=== PATIENT | male | born 1995 | race Hispanic/Latino ===

== ENCOUNTER 2020-11-17 04:04 | Emergency (ER) | payer SELFPAY ==
[2020-11-17] MEDS ORDERED: Mag-Al Plus 1200 MG/1200 MG/120 MG/30 ML UDCUP ONE ×2 (04:24→05:59)
[2020-11-17] MEDS ORDERED: Lidocaine Viscous Sol 2% 15 ml UD Cup ONE ×2 (04:24→05:59)
[2020-11-17 04:41] LABS: #Basophils 0.1 thou/uL (0.0-0.2); #Eosinphils 0.4 thou/uL (0.0-0.7); #Lymphocytes 2.4 thou/uL (1.20-3.40); #Monocytes 0.8 thou/uL (0.11-0.59); #Neutrophils 6.8 thou/uL (1.40-6.50); %Basophils 0.8 % (0.0-1.0); %Eosinophils 3.6 % (0.0-10.0); %Lymphocytes 23.2 % (21.0-51.0); %Monocytes 7.5 % (0.0-10.0); %Neutrophils 64.9 % (42.0-75.0); Hemoglobin 14.7 g/dL (14.0-18.0); Mean Corpuscular HGB CONC 32.7 g/dL (32.0-36.0); Mean Corpuscular Hemoglobin 27.6 pg (27.0-31.0); Mean Corpuscular Volume 84.5 fL (78.0-98.0); Mean Platelet Volume 9.8 fL (7.4-10.4); Platelet Count 230 thou/uL (130-400); RBC Distribution Width 12.1 % (11.5-14.5); Red Blood Cell (RBC) Count 5.33 mill/uL (4.70-6.10); White Blood Cell (WBC) Count 10.5 thou/uL (4.8-10.8)
[2020-11-17 05:08] LABS: ALT (SGPT) 59 U/L (8-55); AST (SGOT) 23 U/L (5-34); Albumin 4.2 g/dL (3.5-5.0); Alkaline Phosphatase 76 U/L (40-110); Anion Gap 13 mmol/L (10-20); BUN (Urea Nitrogen) 13 mg/dL (8.9-20.6); Bilirubin, Total 0.3 mg/dL (0.2-1.2); Calc. Creatinine Clearance 0 mL/min (70-130); Calcium 9.3 mg/dL (7.8-10.44); Carbon Dioxide 26 mmol/L (22-29); Chloride 106 mmol/L (98-107); Globulin 3.2 g/dL (2.4-3.5); Glucose 129 mg/dL (70-105); Lipase 13 U/L (8-78); Potassium 4.8 mmol/L (3.5-5.1); Protein, Total 7.4 g/dL (6.0-8.3); Sodium 140 mmol/L (136-145)
[2020-11-17] MEDS ORDERED: Morphine 4 MG/ML VIAL ONE (05:40)
[2020-11-17] MEDS ORDERED: Morphine 2 MG/ML VIAL ONE (05:40)
[2020-11-17] MEDS ORDERED: Sucralfate 1 GM TAB ONE (05:59)
[2020-11-17] MEDS ORDERED: Dicyclomine 10 MG CAP ONE ×2 (05:59→06:00)
== END 2020-11-17 06:14 | disposition home or self-care (01) ==
LOC: MADERS 04:04
DX: K29.70 Gastritis, unspecified, without bleeding (principal)
CPT/HCPCS: 36415; 80053; 83690; 85025; 96372; 99284; J2270

== ENCOUNTER 2021-01-19 17:14 | Emergency (ER) | payer BC ==
[2021-01-19] MEDS ORDERED: Mag-Al Plus 1200 MG/1200 MG/120 MG/30 ML UDCUP ONE (18:24)
[2021-01-19] MEDS ORDERED: Lidocaine Viscous Sol 2% 15 ml UD Cup ONE (18:24)
[2021-01-19] MEDS ORDERED: Sucralfate 1 GM TAB ONE (18:24)
[2021-01-19] MEDS ORDERED: Famotidine 20 MG TAB ONE (18:24)
[2021-01-19] MEDS ORDERED: Pantoprazole 40 MG VIAL ONE (19:44)
== END 2021-01-19 20:46 | disposition home or self-care (01) ==
LOC: MADERS 17:14
DX: K29.00 Acute gastritis without bleeding (principal); I10 Essential (primary) hypertension
CPT/HCPCS: 96374; C9113

== ENCOUNTER 2021-01-26 04:12 | Emergency (ER) | payer BC ==
[2021-01-26 04:55] LABS: #Basophils 0.1 thou/uL (0.0-0.2); #Eosinphils 0.1 thou/uL (0.0-0.7); #Lymphocytes 2.7 thou/uL (1.20-3.40); #Monocytes 0.6 thou/uL (0.11-0.59); #Neutrophils 8.4 thou/uL (1.40-6.50); %Basophils 0.8 % (0.0-1.0); %Eosinophils 1.1 % (0.0-10.0); %Monocytes 4.7 % (0.0-10.0); %Neutrophils 70.5 % (42.0-75.0); Hemoglobin 15.2 g/dL (14.0-18.0); Mean Corpuscular HGB CONC 33.3 g/dL (32.0-36.0); Mean Corpuscular Hemoglobin 27.5 pg (27.0-31.0); Mean Corpuscular Volume 82.5 fL (78.0-98.0); Mean Platelet Volume 8.8 fL (7.4-10.4); Platelet Count 237 thou/uL (130-400); RBC Distribution Width 11.5 % (11.5-14.5); Red Blood Cell (RBC) Count 5.52 mill/uL (4.70-6.10); White Blood Cell (WBC) Count 11.9 thou/uL (4.8-10.8)
[2021-01-26] MEDS ORDERED: Sodium Chloride 0.9% 1,000 ML ONE (04:55)
[2021-01-26] MEDS ORDERED: Promethazine HCl 25 MG/ML VIAL ONE (04:55)
[2021-01-26] MEDS ORDERED: Lidocaine Viscous Sol 2% 15 ml UD Cup ONE (04:56)
[2021-01-26] MEDS ORDERED: Mag-Al Plus 1200 MG/1200 MG/120 MG/30 ML UDCUP ONE (04:56)
[2021-01-26] MEDS ORDERED: Famotidine In NaCl 20 mg/50 ml Premix Bag ONE (04:56)
[2021-01-26 05:13] LABS: ALT (SGPT) 27 U/L (8-55); AST (SGOT) 19 U/L (5-34); Albumin 4.2 g/dL (3.5-5.0); Alkaline Phosphatase 67 U/L (40-110); Anion Gap 17 mmol/L (10-20); BUN (Urea Nitrogen) 17 mg/dL (8.9-20.6); Bilirubin, Total 0.4 mg/dL (0.2-1.2); Calc. Creatinine Clearance 0 mL/min (70-130); Calcium 8.5 mg/dL (7.8-10.44); Carbon Dioxide 24 mmol/L (22-29); Chloride 105 mmol/L (98-107); Globulin 3.9 g/dL (2.4-3.5); Glucose 133 mg/dL (70-105); Lipase 17 U/L (8-78); Potassium 3.7 mmol/L (3.5-5.1); Protein, Total 8.1 g/dL (6.0-8.3); Sodium 142 mmol/L (136-145)
[2021-01-26] MEDS ORDERED: Sucralfate 1 GM TAB ONE (06:47)
== END 2021-01-26 06:54 | disposition home or self-care (01) ==
LOC: MADERS 04:12
DX: K21.9 Gastro-esophageal reflux disease without esophagitis (principal); I10 Essential (primary) hypertension; Z79.899 Other long term (current) drug therapy
CPT/HCPCS: 80053; 83690; 84484; 85025; 93005; 96365; 96367; J2550; J7050

== ENCOUNTER 2021-09-26 02:49 | Emergency (ER) | payer BC ==
[2021-09-26] MEDS ORDERED: Lidocaine Viscous Sol 2% 15 ml UD Cup ONE (03:41)
[2021-09-26] MEDS ORDERED: Pantoprazole 40 MG VIAL ONE (03:42)
[2021-09-26] MEDS ORDERED: Mag-Al Plus 1200 MG/1200 MG/120 MG/30 ML UDCUP ONE (03:42)
[2021-09-26] MEDS ORDERED: Ondansetron PF 4 MG/2 ML Vial ONE (03:48)
[2021-09-26 04:04] LABS: #Basophils 0.1 thou/uL (0.0-0.2); #Eosinphils 0.3 thou/uL (0.0-0.7); #Lymphocytes 2.9 thou/uL (1.20-3.40); #Monocytes 0.6 thou/uL (0.11-0.59); #Neutrophils 7.2 thou/uL (1.40-6.50); %Basophils 1.1 % (0.0-1.0); %Eosinophils 2.6 % (0.0-10.0); %Monocytes 5.3 % (0.0-10.0); MDiff Complete? YES; Mean Corpuscular HGB CONC 31.3 g/dL (32.0-36.0); Mean Corpuscular Hemoglobin 27.3 pg (27.0-31.0); Mean Corpuscular Volume 87.5 fL (78.0-98.0); Mean Platelet Volume 15.5 fL (7.4-10.4); Platelet Clumps SLIGHT; Platelet Count 190 thou/uL (130-400); Platelet Morphology Comment Appears Adequate; RBC Morphology Normal; Red Blood Cell (RBC) Count 5.48 mill/uL (4.70-6.10); White Blood Cell (WBC) Count 11.1 thou/uL (4.8-10.8)
[2021-09-26 04:05] LABS: ALT (SGPT) 41 U/L (8-55); AST (SGOT) 23 U/L (5-34); Albumin 4.4 g/dL (3.5-5.0); Alkaline Phosphatase 81 U/L (40-110); Anion Gap 16 mmol/L (10-20); BUN (Urea Nitrogen) 17 mg/dL (8.9-20.6); Bilirubin, Total 0.2 mg/dL (0.2-1.2); Calc. Creatinine Clearance 0 mL/min (70-130); Carbon Dioxide 22 mmol/L (22-29); Chloride 108 mmol/L (98-107); Estimated GFR 100; Globulin 3.2 g/dL (2.4-3.5); Glucose 138 mg/dL (70-105); Lipase 12 U/L (8-78); Potassium 3.9 mmol/L (3.5-5.1); Protein, Total 7.6 g/dL (6.0-8.3); Sodium 142 mmol/L (136-145)
[2021-09-26 04:29] LABS: Bilirubin Negative (Negative); Blood, Urine Trace (Negative); Clarity Clear (Clear); Glucose, Urine (Dipstick) Negative (Negative); Ketone, Urine Negative (Negative); Leukocyte Negative (Negative); Nitrite Negative (Negative); Protein, Urine (Dipstick) Negative (Neg-Trace); Urobilinogen 0.2 mg/dL (Less than 2)
[2021-09-26 04:30] LABS: Specific Gravity, Urine 1.029 (1.002-1.036)
[2021-09-26 04:39] LABS: Bacteria/HPF None Seen HPF (None Seen); RBC/HPF 0-3 HPF (0-3); Squamous Epithelial 0-3 HPF (0-3); WBC/HPF 0-3 HPF (0-3)
[2021-09-26] MEDS ORDERED: Sucralfate 1 GM TAB ONE (04:42)
[2021-09-26] MEDS ORDERED: Famotidine/PF 20 mg/2ml Vial ONE (04:42)
[2021-09-26] MEDS ORDERED: Iopamidol 370 76% 100 ML VIAL ONE (09:04)
== END 2021-09-26 06:33 | disposition home or self-care (01) ==
LOC: MADERS 02:49
DX: K29.00 Acute gastritis without bleeding (principal); I10 Essential (primary) hypertension; K21.9 Gastro-esophageal reflux disease without esophagitis; Z79.899 Other long term (current) drug therapy
CPT/HCPCS: 74177; 80053; 81003; 81015; 83690; 85025; 96374; 96375; C9113; J2405; Q9967; S0028

== ENCOUNTER 2023-11-17 17:23 | Emergency (ER) | payer BC ==
[2023-11-17] MEDS ORDERED: Cyclobenzaprine 10 MG TAB ONE (18:28)
[2023-11-17] MEDS ORDERED: Ibuprofen 800 MG TAB ONE (18:28)
== END 2023-11-17 18:37 | disposition home or self-care (01) ==
LOC: MADERS 17:23
DX: M54.50 Low back pain, unspecified (principal); I10 Essential (primary) hypertension; Z55.6 Problems related to health literacy
CPT/HCPCS: 99283